=== PATIENT | female | born 1955 | race Caucasian/White ===

== ENCOUNTER 2021-10-22 08:37 | Observation (INO) | payer OTHER ==
[~2021-10-22] VITALS: Ht 167.6 cm; Wt 79.5 kg
--- OUTSIDE RECORDS SUMMARY | 2021-10-22 08:40 | XMS ---
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 EJennifer VISIT COUNT (12 MO.) [address] [facility] [address] [place] [address] TOTAL 3 NOTE: Visits indicate total known visits. ED/UCC VISIT TRACKING (12 MO.) 10/22/2021 08:38 KAYLYNN Duffy TYPE: Emergency COMPLAINT: - ABD PAIN 10/17/2021 09[facility] 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
[2021-10-22] MEDS ORDERED: LISINOPRIL10 MG PO (09:25)
[2021-10-22] MEDS ORDERED: MELOXICAM15 MG PO (09:25)
[2021-10-22] MEDS ORDERED: TRAMADOL HCL50 MG PO (09:25)
[2021-10-22] MEDS ORDERED: DULOXETINE HCL30 MG PO (09:25)
[2021-10-22] MEDS ORDERED: MAGNESIUM100 MG PO (09:26)
[2021-10-22] MEDS ORDERED: ZYRTEC10 MG (09:26)
--- NOTE | 2021-10-22 12:26 | NUR ---
REPORT RECEIVED FROM DANE BULL. AWAITING PTS ARRIVAL TO MED/SURG.
[2021-10-22] MEDS ORDERED: ALLER-FEX180 MG PO (13:17)
--- NOTE | 2021-10-22 13:22 | NUR ---
PT ARRIVED FROM ER. PT TRANSFERS SELF TO BED, NO ASSISTANCE NEEDED. PT STEADY ON FEET. PT REPORTS 7/10 PAIN IN RIGHT UPPER QUADRANT, SEE MAR FOR MEDICAITON GIVEN. PT DENIES NASUEA. LUNG SOUNDS CLEAR. HEART TONES REGULAR. CMS INTACT. BOWEL TONES ACTIVE. ABDOMEN SOFT ALTHOUGH TENDER IN RIGHT UPPER QUADRANT. PT REPORTS ABDOMEN APPEARS MILDLY DISTENDED. PT DENIES DIARRHEA TODAY BUT REPORTS "i DID IT ALL LAST NIGHT. I CLEANED MY COLON OUT." CONFIRMING RECENT DIARRHEA. PT REMAINS NPO AT THIS TIME. IV FLUIDS STARTED. PT TALKING WITH FAMILY ON PHON. NO ADDITIONAL REQUESTS OR COMPLAINTS. CALL LIGHT CrambuIN REACH. BED RAILS UP.
[2021-10-22] MEDS ORDERED: ZYRTEC10 MG PO (14:02)
[2021-10-22] MEDS ORDERED: CALCIUM500 MG PO (14:07)
[2021-10-22] MEDS ORDERED: VITAMIN D350 MCG PO (14:08)
[2021-10-22] MEDS ORDERED: TYLENOL EXTRA500 MG PO (14:08)
--- NOTE | 2021-10-22 14:57 | NUR ---
THIS RN TO ROOM TO CHECK ON PT. PT STATES "CAN YOU MAKE THIS PAIN GO AWAY FOR LONGER." EDUCTION DONE WITH PT REGARDING PAIN MEDICATION. PT RATES PAIN AT 7/10 IN RIGHT SIDED ABDOMEN. PT REPORTS PAIN "SHARP." SEE MAR FOR MEDICATION GIVEN. PT CONTINUES TO DENY NAUSEA. NO ADDITIONAL REQUESTS OR COMPLAINTS. CALL LIGHT WITHIN REACH. BED RAILS UP.
--- NOTE | 2021-10-22 15:29 | NUR ---
PT CALLS TO REPORT IV PUMP ALARMING, RESOLVED. PT STATES SHE CANNOT GET COMFORTABLE IV IN LAC KEEP HER FROM BENDING HER ARM. NEW IV PLACED IN RFA AND IV FLUIDS MOVED TO RFA IV SITE. EDUCATION ABOUT IVs PROVIDED. NO OTHER NEEDS AT THIS TIME. CALL LIGHT IN REACH.
--- NOTE | 2021-10-22 15:58 | NUR ---
THIS RN TO ROOM TO CHECK ON PT. PT RESTING IN BED ON LEFT SIDE. PT RPEORTS PAIN HAS IMPROVED NOW 08/11. PT DENIES NEED FOR ADDITIONAL PAIN MEDICAITON AT THIS TIME. NO ADDITIONAL REQUESTS OR COMPLAINTS. CALL LIGHT WITHIN REACH. BED RAILS UP.
--- NOTE | 2021-10-22 16:26 | NUR ---
AFTERNOON ASSESSMENT DUE. PT RESTING IN BED ON LEFT SIDE WITH EYES CLOSED. PT AWAKENS TO MOVEMENT IN THE ROOM. PT REPORTS "SHARP" ABDOMINAL PAIN ON RIGHT SIDE AT 6/10, SEE MAR FOR MEDICAITON GIVEN. PT DENIES NAUSEA. STAND BY ASSIST UP TO RESTROOM. PT VOIDS 50ML DARK YELLOW URINE. SAMPLE SENT TO LAB. PT REMAINS ALERT AND OREINTED TO ALL. LUNG SOUNDS CLEAR. HEART TONES REGULAR. ABDOMEN REMAINS SOFT BUT TENDER TO RIGHT SIDE. BOWEL TONES ACTIVE. MILD DISTENTION CONTINUES. NO ADDITONAL REQUESTS OR COMPLAINTS AT THIS TIME. PT TELLING STORIES ABOUT HER FAMILY. CALL LIGHT WITHIN REACH. BED RAILS UP.
--- NOTE | 2021-10-22 16:51 | NUR ---
DR. KIRK UPDATED ON PT STATUS. NEW ORDERS PLACED. CLEAR LIQUIDS PROVIDED TO PT. PT DENIES ADDITIONAL REQUESTS OR COMPLAINTS. CALL LIGHT WITHIN REACH.
--- NOTE | 2021-10-22 17:43 | NUR ---
THIS RN TO ROOM WITH DR. KIRK FOR ROUNDS. NEW ORDERS PLACED. PT REPORTS HER QUESTIONS HAVE BEEN ANSWERED AND VERBALIZES UNDERSTANDING OF PLAN OF CARE. PT REPORTS PAIN IS WELL COTNROLLED AT 5/10 AT THIS TIME. CONSENT FOR SURGERY SIGNED. NO ADDITIONAL NEEDS AT THIS TIME. CALL LIGHT WITHIN REACH. BED RAILS UP.
--- NOTE | 2021-10-22 18:16 | NUR ---
NEW ORDERS PLACED. MEDICATIONS GIVEN PER MD ORDER. NEW IV FLUIDS HUNG. EKG PERFORMED BY RT [place]. PT REPORTS PAIN IS WELL CONTROLED AT 5/10. I.S. PROVIDED, PT DEMONSTARTES USE REACHING 1250ML X5. SCDS APPLIED. PT DECLINES SCDS'. PT ENCOUARGED TO AMBULATE. PT UP TO AMBULATE IN BLANCHARD, INDEPENDANT, X2 LAPS. NO ADDITIONAL NEEDS AT THIS TIME. CALL LIGHT WITHIN REACH. BED RAILS UP.
--- NOTE | 2021-10-22 18:41 | NUR ---
PT ARRIVED TODAY FOR CHOLECYSITIS. PT INDEPENDANT IN ROOM, STEADY ON FEET. PT TOLERATING CLEAR LIQUID DIET WITH OUT NAUSEA. PT REPORTS 5-8/10 PAIN THIS SHIFT, PRN PAIN MEDICATION GIVEN. ABDOMEN SOFT BUT TENDER TO TOUCH. BOWEL TONES ACTIVE. EKG DONE PER MD ORDER. SCD'S AND I.S. IN PLACE. PRE OP INSTRUCTION COMPLETED. PT VOIDING QUANITTY SUFFICIENT. PT USES CALL LIGHT AND MAKES NEEDS KNOWN.
--- NOTE | 2021-10-22 23:08 | NUR ---
PT STATES SHE DID NOT GET ANY RELIEF WITH PO NORCO.
--- NOTE | 2021-10-23 00:05 | NUR ---
PT IS NPO FOR SURGERY IN THE AM.
--- NOTE | 2021-10-23 00:44 | NUR ---
PT AWAKENED WITH URGE TO GO TOTHE BATHROOM. PT VOIDED AND WAS ASSISTED BACK TO BED. CALL LIGHT IN REACH.
--- NOTE | 2021-10-23 04:14 | NUR ---
PT STATES THAT THE NORCO DID NOTHING FOR HER PAIN. PAIN IS INCREASING. PT RATED HER PAIN 7/10. SHE WAS GIVEN DILAUDID 0.5 MG SLOW IVP. CALL LIGHT IN REACH.
--- NOTE | 2021-10-23 06:58 | NUR ---
PT AMBULATEED IN THE HALLS ACCOMPANIED BY STAFF. SHE TOLERATED THIS WELL. SHE THEN WENT TO THE BATHROOM AND VOIDED. BACK TO BED.CALL LIGHT IN REACH.
--- NOTE | 2021-10-23 07:27 | NUR ---
PT HAS HAD HER PAIN CONTROLLED WITH IV DILAUDID 0.5 MG X2 DOSES THIS SHIFT. PO NORCO DID NOT RELIEVE HER ABD PAIN. SHE HAS BEEN UP INDEPENDENTLY TO VOID. NPO SINCE MIDNIGHT. AMBULATED IN THE HALLS WITH STAFF. VSS. AFEBRILE.
--- NOTE | 2021-10-23 07:30 | NUR ---
SHIFT REPORT RECEIVED FROM TAWNY VELA. PT RESTING IN BED. NO NEEDS AT THIS TIME. CALL LIGHT IN REACH.
--- NOTE | 2021-10-23 08:28 | CONS ---
[facility] [address] [place], [place] [address] Signed DATE OF CONSULTATION: 10/22/2021 CHIEF COMPLAINT: Right upper quadrant abdominal pain. HISTORY OF PRESENT ILLNESS: Marisol is a 65-year-old female, who has been having right upper quadrant abdominal pain for about the last year. They were treating as rib pain. That was not working. She started to realize it was associated with fatty meals. She went to the [facility] about a week ago. Interestingly, the ultrasound and CT scan were overly concerning. There was some consideration that she might need a HIDA scan with ejection fraction. For some reason, she came to our emergency room in that regard. Unfortunately that is an outpatient test done in our nuclear department. Nevertheless, she clearly has right upper quadrant abdominal pain. We repeated the blood work and her AST and ALT are just slightly elevated. We repeated the ultrasound and she actually has sludge and stones in her gallbladder with the gallbladder wall slightly thick at 3.4 mm and a positive Barrera sign. Common bile duct is unremarkable at 5 mm. I have been asked to admit her as a general surgeon on-call. She has already been hydrated, given Rocephin and Flagyl. We are in the midst of COVID surge and half of our staff is actually absent from the hospital. Consequently, we will be doing her surgery tomorrow morning as an add-on. PAST MEDICAL HISTORY: Hypertension, vertigo, seasonal allergies, left shoulder and neck pain, fatigue, hyperglycemia, diverticulosis, umbilical hernia, right inguinal hernia, right hip pain. PAST SURGICAL HISTORY: She has had 2 C-sections and bilateral tubal ligation. SOCIAL HISTORY: She does not smoke or drink. She is to [place] at [phone]. She has 2 grown children. 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 They have moved from [facility] to [place], [place]. They prefer [facility]. FAMILY HISTORY: Mom had breast cancer. Brother was around secondhand smoke and ended up with a head and neck cancer. REVIEW OF SYSTEMS: She had 10 systems reviewed and there are all included in the above. ALLERGIES: None. Electronically Signed By: MILO KIRK MD 10/23/21 0828 PATIENT NAME: MARISOL LINDQUIST CONSULTATION DATE OF : 57 REPORT #: [id number] PHYSICIAN: MILO KIRK MD PCP: OTHER PCP REPORT IS CONFIDENTIAL AND NOT TO BE RELEASED WITHOUT AUTHORIZATION [facility] [address] [place], [place] [address] Signed MEDICATIONS: Duloxetine 30 mg p.o. daily, lisinopril 10 mg p.o. daily, meloxicam, and magnesium. PHYSICAL EXAMINATION: VITAL SIGNS: Blood pressure 155/71. She did not take the lisinopril today. Heart rate 58, respiratory rate 18, temperature is 97.6 degrees, 100% on room air. She is 5 feet 6 inches and 79 kg. GENERAL: Kelsey is a 65-year-old female, lying supine semi-recumbent in our hospital bed. She is alert, awake, and interactive. She is not systemically ill or toxic. She is not jaundiced. LUNGS: Clear to auscultation bilaterally. HEART: Regular rate and rhythm without murmurs. ABDOMEN: Generally soft and flat with some tenderness in the right upper quadrant. She has received some pain medications. LABORATORY DATA: Her white blood cell count 7.8, hemoglobin 13, neutrophils 62. Electrolytes are unremarkable. Her blood sugar 119. COVID is negative. Total bilirubin 0.9, AST 46, ALT 61, alkaline phosphatase 80, albumin 3.8, her lipase is 64. RADIOGRAPHIC STUDIES: I reviewed the ultrasound report and the CT scan report from [facility]. Her ultrasound today shows sludge and stones in the gallbladder with the gallbladder wall at 3.4 mm and common bile duct at 5 mm with a positive Barrera sign. ASSESSMENT/PLAN: Marisol is a 65-year-old female with acute on chronic cholecystitis, cholelithiasis. She has been admitted and we will start on IV antibiotics. I have reviewed with her the location and function of the gallbladder. We have discussed laparoscopic versus open cholecystectomy. We have reviewed the expected intraop and postop course. There is risk of surgery including, but not limited to bleeding, infection, scarring, change in contour of the skin, damage to bowel, damage to main bile duct, incisional hernias, and other unforeseen comorbidities. She has expressed understanding and would like to proceed with surgery tomorrow. Milo Kirk MD ALB/MODL /[id number] Electronically Signed By: MILO KIRK MD 10/23/21 0828 PATIENT NAME: MARISOL LINDQUIST CONSULTATION DATE OF : 57 REPORT #: [id number] PHYSICIAN: MILO KIRK MD PCP: OTHER PCP REPORT IS CONFIDENTIAL AND NOT TO BE RELEASED WITHOUT AUTHORIZATION [address] [place], [place] [address] Signed cc: Milo Kirk MD [facility] [place] [facility] Copies: MILO KIRK MD ~ Electronically Signed By: MILO KIRK MD 10/23/21 0828 PATIENT NAME: LEXAMARISOL JEAN CONSULTATION DATE OF : 57 REPORT #: [id number] PHYSICIAN: MILO KIRK MD PCP: OTHER PCP REPORT IS CONFIDENTIAL AND NOT TO BE RELEASED WITHOUT AUTHORIZATION
--- NOTE | 2021-10-23 08:32 | NUR ---
[facility] CALLED AND STATES THEY WILL ARRIVE SHORTLY TO TRANSPORT PT TO OR. PT PERFORMS CHG WIPE DOWN. LINENS CHANGED. PT UPDATED ON PLAN FOR SURGERY THIS MORNING. PT VERBALIZES UNDERSTANDING OF PLAN OF CARE AND STATES HER QUESTIONS HAVE BEEN ANSWERED. REPORT GIVEN TO AGAPITO, OR CHARGE. [facility] STATES TO HOLD BLOOD PRESSURE MEDICATION, PANTOPRAZOLE AND DULOXETINE (MEDICATIONS HELD), BUT TO GIVE BOTH IV ABX AND ENOXAPARIN (GIVE, SEE MAR). PT TO OR WITH OR STAFF. NO ADDITIONAL NEEDS AT THIS TIME.
--- NOTE | 2021-10-23 08:53 | NUR ---
PT PRIMARY RN, SUSY, UPDATED ON PT STATUS, HELD MEDICATIONS AND TRANSFER TO OR.
--- NOTE | 2021-10-23 11:59 | NUR ---
10/23/21 Moncho9 Maria Victoria Boland 1151-PATIENT ARRIVED TO PACU ON 6L MASK RR EVEN. PATIENT REACTIVE TO VERBAL STIMULI OPENING EYES. SR. IVF INFUSING. ABDOMEN CDI WITH 3 LAP SITES TO ABDOMEN ICE APPLIED. DENIES PAIN OR NAUSEA. REPORTS "FEEL WEIRD"
--- NOTE | 2021-10-23 12:24 | NUR ---
PT TAKEN TO OR FOR SURGERY. WILL FOLLOW
--- NOTE | 2021-10-23 12:39 | NUR ---
PT ARRIVED FROM PACU. PT AGITATED AND FIXATED ON EVENTS OF THE NIGHT/DAY. PT CALMS WITH THERAPUTIC COMMUNICATION AND EDUCATION. VITAL SIGNS STABLE. PT DENIES NAUSEA. PT REPORTS 8/10 ACHING PAIN IN HER ABDOMEN. SEE MAR FOR MEDICATION GIVEN. PT UP TO RESTROOM WITH STAND BY ASSIST. PT VOIDS ML CLEAR YELLOW URINE. PT PERFORMS SELF JASMYNE CARE. STAND BY ASSIST BACK TO BED. GAUZE REMAINS IN PLACE OVER ABDOMINAL LAPAROSCOPIC SITES X3. DRESSINGS C/D/I. NO DRAINAGE NOTED. ABDOMEN SOFT BUT MODERATLY TENDER. BOWEL TONES HYPOACTIVE. PUDDING PROVIDED. PT TOELRATING SIPS OF ICE WATER. NO ADDITIONAL NEEDS AT THIS TIME. CALL LIGHT WITHIN REACH. BED RAILS UP.
--- NOTE | 2021-10-23 13:00 | NUR ---
REPORT GIVEN TO DANE JAIN. WHO HAS PRIMARY CARE OF PT.
--- NOTE | 2021-10-23 13:44 | NUR ---
BED ALARM SOUNDING. PT ATTEMPTING TO GET UP ON HER OWN. PT UNSTEADY AND REPORTS DIZZINESS. PT EDUCATION DONE REGARDING FALL PRECATUTIONS. PT VERBALIZES UNDERSTANDING. STAND BY ASSIST UP TO RESTROOM. PT VOIDS 500ML OF CLEAR YELLOW URINE. STAND BY ASSIST BACK TO BED, PT IMPULSIVE AND USING FURNATURE TO KEEP HER BALANCE. PT REPORTS 6/10 PAIN IN ABDOMEN AND REQUESTS PAIN MEDICATION, NORCO TITRATED UP TO FULL DOSE. ABDOMEN REMAINS SOFT, TENDER WITH PALPATION. BOWEL TONES HYPOACTIVE. GAUZE DRESSING OVER LAP SITES C/D/I WITH NO DRAINAGE NOTED. VITAL SIGNS STABLE. PT RESTING ON LEFT SIDE. BED ALARM ON. CALL LIGHT WIHTIN REACH. NO ADDITIONAL NEEDS AT THIS TIME. PTS PRIMARY RN UPDATED.
[2021-10-23] MEDS ORDERED: HYDROCODON-ACE1 EAC8 (14:44)
--- NOTE | 2021-10-23 14:49 | NUR ---
VITALS STABLE. PT. AMBULATED 1 LAP AROUND THE UNIT AND TOLERATED WELL. SHE REPORTS TOLERABLE ABDOMINAL SORENESS. DENIES NAUSEA. PT HAS MET CRITERIA FOR DISCHARGE. DISCUSSED DISCHARGE AND PT. AGREES SHE WOULD LIKE TO GO HOME.
[2021-10-23] MEDS ORDERED: ADVIL200 MG PO (15:04)
--- NOTE | 2021-10-23 16:45 | NUR ---
PT READY FOR DISCHRAGE. VITAL SIGNS STABLE. PT REPROTS HER HAS ARRIVED. PT REPORTS 6/10 PAIN IN ABDOMEN AND REQUESTS A PAIN PILL "FOR THE DRIVE HOME." SEE MAR FOR MEDICATION GIVEN. PT TRANSFERES SELF TO WHEELCHAIR. PT WHEELED FROM MED/SURG WITH ALL BELONGINS TO MEET . NO ADDITIONAL REQUESTS OR CONCERNS.
--- NOTE | 2021-10-23 16:54 | NUR ---
ALL DISCHARGE INSTRUCTIONS REVIEWED WITH PT. AND QUESTIONS ANSWERED. IVS REMOVED WITH CATH INTACT AND EDUCATION PROVIDED. PT. LEFT VIA WHEEL CHAIR WITH CHARGE. WITH ALL BELONGINGS.
--- NOTE | 2021-10-23 20:08 | OR ---
[facility] [address] [place], [place] [address] Signed DATE OF OPERATION: 10/23/2021 SURGEON: Milo Kirk MD PREOPERATIVE DIAGNOSIS: Ydvbj-ml-[id number] cholecystitis with cholelithiasis (sludge). POSTOPERATIVE DIAGNOSIS: Ekxbb-cp-[id number] cholecystitis with cholelithiasis (sludge). PROCEDURE: Laparoscopic cholecystectomy without intraoperative cholangiogram. ESTIMATED BLOOD LOSS: None. FINDINGS: Nae indeed had inflammatory changes and edema of the gallbladder with the surrounding omentum and duodenum mildly adherent to the gallbladder. She did have a thickened gallbladder wall with very thick motor oil-like sludge. We did not specifically see any stones. We could not get our cholangiocatheter pass through the valves of Heister. Therefore, we did not complete an intraoperative cholangiogram. INDICATIONS: Nae is a 65-year-old female, who over about the last year has been having right upper quadrant abdominal pain. Initially, there was some consideration for a rib pain. That was not working as far as treatment goes. She began to realize that the pain was worse with fatty meals. She had been to the [facility] about a week ago. The CT scan and the ultrasound were overly concerning. Her lab work was not particularly concerning. There was consideration for a HIDA scan with ejection fraction. She was therefore sent up to our hospital emergency room. We repeated her laboratory work and found that her AST and ALT were slightly elevated. The repeat ultrasound showed sludge and possibly stones in her gallbladder. The wall was a little thick around 3.4 mm. Common bile duct was unremarkable. She did demonstrate a positive sonographic Barrera sign. Consequently, I have been asked to admit her as a general surgeon on-call. She was hydrated overnight and started on Rocephin and Flagyl. I had met with her yesterday and prior to the surgery today. We had reviewed the above findings. I gave her a brochure on the gallbladder. We had reviewed the location of function of the gallbladder. We reviewed laparoscopic versus open cholecystectomy. She understands expected intraop and postop course. There is risk including, but not Electronically Signed By: MILO KIRK MD 10/23/212007 PATIENT NAME: NAE LINDQUIST OPERATIVE REPORT DATE OF : 57 REPORT #: [id number] PHYSICIAN: MILO KIRK MD PCP: OTHER PCP REPORT IS CONFIDENTIAL AND NOT TO BE RELEASED WITHOUT AUTHORIZATION [facility] [address] [place] [address] Signed limited to bleeding, infection, scarring, change in contour of the skin, damage to bowel, damage to the main bile duct, incisional hernias and other unforeseen comorbidities. She had expressed understanding and wished to proceed. PROCEDURE IN DETAIL: Nae was taken in the operating room and placed in the supine position under general endotracheal tube anesthesia. She was on preoperative antibiotics along with subcutaneous Lovenox. SCDs were utilized. She was prepped and draped in usual sterile fashion. All trocars were placed in usual positions under direct visualization of camera without difficulty. The top of the gallbladder was grasped and elevated in the right upper quadrant. We had to very carefully and judiciously use some cautery to start our dissection and bluntly dissect the omentum and duodenum in transverse mesocolon down away from the gallbladder. We dissected out the triangle of Calot and located our cystic duct. The cholangiocatheter was inserted in two separate locations on the cystic duct without success. We ran into her valves of Heister. We did not feel it was lewis to travel down the cystic duct any further as there was more inflammatory changes. We therefore abandoned the intraoperative cholangiogram and placed three clips fully across the cystic duct stump. The cystic duct stump was then divided sharply. We placed several clips on our cystic artery and then we removed the gallbladder from the gallbladder fossa with the help of the cautery and placed that into an EndoCatch bag. The right upper quadrant was irrigated and suctioned out until clear. We used our laparoscopic suturing device to pass 0-Vicryl suture on either side of the fascia of the subxiphoid trocar site. This was tied down to close this fascia primarily. After this, all the gas was allowed to escape and the trocars were removed along with the gallbladder. The gallbladder was opened on the back table by our circulating nurse for photodocumentation. We found very thick motor oil sludge, but no obvious stones. She appears to have some cholesterolosis and thickening to the gallbladder wall. We closed the fascia of the supraumbilical trocar site with interrupted simple and [id number] 0 Vicryl sutures. Local anesthetic was copiously injected into all trocar sites. Each trocar site was irrigated and suctioned out until clear. The skin and dermis of each trocar site were closed with interrupted 3-0 subcuticular Monocryl sutures. Dry gauze and tape were applied to all incisions. Nae was awakened from her anesthesia, extubated in the OR, and taken to recovery room in stable condition. Milo Kirk MD ALB/MODL /[id number] Electronically Signed By: MILO KIRK MD 10/23/212007 PATIENT NAME: NAE LINDQUIST OPERATIVE REPORT DATE OF : 57 REPORT #: [id number] PHYSICIAN: MILO KIRK MD PCP: OTHER PCP REPORT IS CONFIDENTIAL AND NOT TO BE RELEASED WITHOUT AUTHORIZATION [address] [address] Signed cc: [facility] Milo Kirk MD [facility] Copies: MILO KIRK MD ~ Electronically Signed By: MILO KIRK MD 10/23/212007 PATIENT NAME: NAE LINDQUIST OPERATIVE REPORT DATE OF : 57 REPORT #: [id number] PHYSICIAN: MILO KIRK MD PCP: OTHER PCP REPORT IS CONFIDENTIAL AND NOT TO BE RELEASED WITHOUT AUTHORIZATION
--- NOTE | 2021-10-24 07:01 | EKG ---
[facility] [address] [facility] [place], [place] [address] Signed Normal sinus rhythm Low voltage QRS Borderline ECG No previous ECGs available Confirmed by TAWNY ISAAC MD ([id number]) on 10/24/2021 7:01:02 AM Electronically Signed By: TAWNY ISAAC MD 10/24/21 0701 PATIENT NAME: MARISOL LINDQUIST Electrocardiogram DATE OF : 57 PHYSICIAN: TAWNY ISAAC MD REPORT #: [id number] REPORT IS CONFIDENTIAL AND NOT TO BE RELEASED WITHOUT AUTHORIZATION
--- NOTE | 2021-10-27 11:34 | PATH ---
[facility] [address] [place], [place] [address] Signed SPECIMEN(S): A GALLBLADDER SPECIMEN SOURCE: A. GALLBLADDER CLINICAL HISTORY: Cholecystitis, cholelithiasis. FINAL PATHOLOGIC DIAGNOSIS: Gallbladder, cholecystectomy: - Chronic calculous cholecystitis. JVR:[facility]:C2NR MICROSCOPIC EXAMINATION: Histologic sections of all submitted blocks are examined by light microscopy. These findings, together with the gross examination, support the pathologic diagnosis. GROSS DESCRIPTION: The specimen, labeled "CrystalMarisol," and designated on the requisition "gallbladder," is received in formalin and consists of: Specimen: Previously opened gallbladder. Dimensions: 7.8 x 5.2 x 0.9 cm. Serosa: Violaceous and focally congested. Cystic Duct: Inked, probed. Calculi: Not grossly identified. Mucosa: Green and velvety. Wall thickness: 0.5 cm. Lymph node: No pericystic lymph nodes are grossly identified. Additional: None. Digital Specialist sections are submitted in cassette (A1). FB (under the direct supervision of a pathologist) The Gross Description was prepared using a voice recognition system. The report was reviewed for accuracy; however, sound-alike word errors, addition and/or deletions may occur. If there is any question about this report, please contact Client Services. PERFORMING LABORATORY: The technical component was performed by [employer], [address] [place] [id number] (CLIA# [id number]). The professional interpretation was performed by [employer] Yajaira Apodaca PATIENT NAME: MARISOL LINDQUIST PATHOLOGY DATE OF : 57 REPORT #: [id number] PHYSICIAN: JENN PATHOLOGY PCP: OTHER PCP REPORT IS CONFIDENTIAL AND NOT TO BE RELEASED WITHOUT AUTHORIZATION [facility] [address] [place], [place] [address] [phone] (CLIA#: [id number]). Diagnostician: Navdeep Elmore MD Pathologist Electronically Signed 10/27/2021 Copies: ~ PATIENT NAME: MARISOL LINDQUIST PATHOLOGY DATE OF : 57 REPORT #: [id number] PHYSICIAN: JENN PATHOLOGY PCP: OTHER PCP REPORT IS CONFIDENTIAL AND NOT TO BE RELEASED WITHOUT AUTHORIZATION
== END 2021-10-23 16:43 | disposition home or self-care (01) ==
LOC: ED 08:37 → MS 08:39
PROVIDERS: ADMIT Colon & Rectal Surgery; ATTEND Colon & Rectal Surgery
PROC: 0FT44ZZ Resection of Gallbladder, Percutaneous Endoscopic Approach (ICD-10-PCS; principal; 2021-10-23 08:15)
DX: K80.12 Calculus of gallbladder with acute and chronic cholecystitis without obstruction (principal); I10 Essential (primary) hypertension; Z20.822 Contact with and (suspected) exposure to COVID-19
CPT/HCPCS: 36415; 76705; 80053; 81001; 83690; 83735; 84100; 85025; 87502; 93005; 93010; 96365; 96372; 96375; 96376; 99285-25; A9270; C9803; G0378; J0131; J0330; J0696; J1100; J1170; J1650; J1885; J2001; J2250; J2405; J2704; J3010; J3480; J7030; J7121; U0003

== ENCOUNTER 2023-08-31 06:55 | Day surgery (SDC) | payer OTHER ==
[2023-08-25 15:18] VITALS: BP 121/72
[~2023-08-31] VITALS: Ht 167.6 cm; Wt 84.1 kg
[~2023-08-31 06:55] MED LIST: ADVIL200 MG PO; ALENDRONATE SOD70 MG PO; ALLER-FEX180 MG PO; ALLERCLEAR10 MG PO; AMITRIPTYLINE H10 MG PO; CALCIUM500 MG PO; DULOXETINE HCL30 MG PO; HAIR, SKIN &66.7 MCG PO; HYDROCODON-ACE1 EAC8; LACTATED RINGER'S 1,000 ML IV SCH; LISINOPRIL10 MG PO; MAGNESIUM100 MG PO; MELOXICAM15 MG PO; OMEPRAZOLE20 MG PO; TRAMADOL HCL50 MG PO; TYLENOL EXTRA500 MG PO; VITAMIN D350 MCG PO; ZYRTEC10 MG; ZYRTEC10 MG PO
[2023-08-31] MEDS ORDERED: LIDOCAINE HCL 1% 5 ML SDV INJ ONE (07:00)
[2023-08-31] MEDS ORDERED: FAMOTIDINE 20 MG/ 2 ML VIAL IV SCH (07:00)
[2023-08-31] MEDS ORDERED: IBLOOD GLUCOSE TEST STRIP 1 EA TEST VI PRN ×2 (07:00→11:00)
[2023-08-31] MEDS ORDERED: ADULT MULTI G200 MCG PO (07:10)
[2023-08-31 07:14] VITALS: BP 139/79
--- NOTE | 2023-08-31 07:26 | NUR ---
EKG DONE AT THIS TIME HTN.
--- NOTE | 2023-08-31 07:50 | NUR ---
denies any needs. iv patnt.
--- NOTE | 2023-08-31 08:53 | NUR ---
assisted to br. update given. iv patent.
[2023-08-31] MEDS ORDERED: propofoL 200 MG/20 ML VIAL ONE ×3 (09:29→10:38)
[2023-08-31] MEDS ORDERED: LIDOCAINE HCL 2% 5 ML SDV ONE (09:29)
[2023-08-31] MEDS ORDERED: DEXAMETHASONE SOD PHOS 4 MG/ML VIAL ONE (10:16)
[2023-08-31] MEDS ORDERED: KETOROLAC TROMETHAMINE 30 MG/ML VIAL ONE (10:16)
[2023-08-31] MEDS ORDERED: ondansetron HCL 4 MG/2 ML VIAL ONE (10:16)
[2023-08-31] MEDS ORDERED: fentaNYL citrate 100 MCG/2 ML VIAL ONE (10:18)
[2023-08-31] MEDS ORDERED: FAMOTIDINE 20 MG TAB PO PRN (10:45)
[2023-08-31] MEDS ORDERED: METOCLOPRAMIDE HCL 10 MG/2 ML SDV IV PRN (10:45)
[2023-08-31] MEDS ORDERED: HYDROCODONE/ACETA 5/325 TAB PO PRN (10:45)
[2023-08-31] MEDS ORDERED: MORPHINE SULFATE 10 MG/ML VIAL IV PRN (10:45)
[2023-08-31] MEDS ORDERED: NALOXONE HCL 0.4 MG SYR IV PRN ×2 (10:45→11:00)
[2023-08-31] MEDS ORDERED: ondansetron HCL 4 MG/2 ML VIAL IV PRN ×2 (10:45→11:00)
[2023-08-31] MEDS ORDERED: ondansetron HCL 4 MG TAB PO PRN (10:45)
[2023-08-31] MEDS ORDERED: MAGNESIUM HYDROXIDE/AL HYDROX 30 ML CUP PO PRN (10:45)
[2023-08-31] MEDS ORDERED: PROCHLORPERAZINE EDISYLATE 10 MG/2 ML VIAL IV PRN (10:45)
[2023-08-31] MEDS ORDERED: LACTATED RINGER'S 1,000 ML IV SCH (10:45)
[2023-08-31] MEDS ORDERED: fentaNYL citrate 50 MCG/ML SDV IV PRN (11:00)
[2023-08-31 11:24] VITALS: BP 133/79
--- NOTE | 2023-08-31 11:45 | NUR ---
08/31/23 1145 Massiel Dye 1045 PT ARRIVED IN PACU SLEEPY. 1055 AWAKE AND TALKING TO STAFF. AT BEDSIDE. C/O ABD PAIN 08/11. 1100 SIPPING ON WATER AND EATING JELLO. 1108 TWO NORCO G[address]EN [address] DC INSTRUCTIONS GIVEN. ALL QUESTIONS ANSWERED. 1130 DRESSED AND WAITING IN DS FOR RIDE HOME.
[2023-08-31] MEDS ORDERED: IBUPROFEN 800 MG TAB PO SCH (14:00)
--- NOTE | 2023-09-01 23:43 | EKG ---
[facility] [address] [facility] [place] [address] Signed Normal sinus rhythm Normal ECG When compared with ECG of 22-OCT-2021 18:12, No significant change was found Confirmed by Trice Otero MD () on 09/01/2023 11:43:14 PM Electronically Signed By: TRICE OTERO MD 09/01/23 2343 PATIENT NAME: MARISOL LINDQUIST Electrocardiogram DATE OF : 57 PHYSICIAN: TRICE OTERO MD REPORT #: [id number] REPORT IS CONFIDENTIAL AND NOT TO BE RELEASED WITHOUT AUTHORIZATION
--- NOTE | 2023-09-02 18:58 | PATH ---
[facility] [address] [place], [place] [address] Signed SPECIMEN(S): A ENDOMETRIAL CURETTINGS AND POLYPS SPECIMEN SOURCE: A. ENDOMETRIAL CURETTINGS AND POLYPS CLINICAL HISTORY: Endometrial thickening on ultrasound FINAL PATHOLOGIC DIAGNOSIS: Endometrium with polyps, curettage: - Multiple portions of endometrial polyp. - Scant portions of atrophic endometrium. - Negative for hyperplasia, atypia, and malignancy. SDL MICROSCOPIC EXAMINATION: Histologic sections of all submitted blocks are examined by light microscopy. These findings, together with the gross examination, support the pathologic diagnosis. GROSS DESCRIPTION: The specimen, labeled and designated "Crystal, endometrial curettings and polyps," is received in formalin and consists of irregular shaped pink-castillo membranous and soft tissue fragments that aggregate measure 4.5 x 2.5 x 0.7. The biggest tissue fragment is bisected. Entirely submitted in (A1-A3). JS (under the direct supervision of a pathologist) The Gross Description was prepared using a voice recognition system. The report was reviewed for accuracy; however, sound-alike word errors, addition and/or deletions may occur. If there are any questions about this report, please contact Client Services. ADDITIONAL NOTES: Immunohistochemical and/or in situ hybridization studies if performed in this case included appropriate positive controls that reacted as expected. This test was developed and its performance characteristics determined by [facility]. It has not been cleared or approved by the U.S. Food and Drug Administration. The FDA has determined that such clearance or approval is not necessary. This test is used for clinical purposes. It should not be regarded as investigational or for research. [facility] is certified under the PATIENT NAME: MARISOL LINDQUIST PATHOLOGY DATE OF : 57 REPORT #: [id number] PHYSICIAN: JENN CHUN PCP: NOEMY PATTERSON MD REPORT IS CONFIDENTIAL AND NOT TO BE RELEASED WITHOUT AUTHORIZATION [facility] [address] [place] [id number] Signed Clinical Laboratory Improvement Amendments of 1988 (CLIA) as qualified to perform high complexity clinical laboratory testing. PERFORMING LABORATORY: Technical component was performed by [facility], [address] [place] [address] (CLIA# [id number]). Professional interpretation was performed by [email or web address], [address] [place] [id number] (CLIA#: [id number]). Diagnostician: Britany Georges MD Pathologist Electronically Signed 09/02/2023 Copies: ~ PATIENT NAME: MARISOL LINDQUIST PATHOLOGY DATE OF : 57 REPORT #: [id number] PHYSICIAN: JENN CHUN PCP: NOEMY PATTERSON MD REPORT IS CONFIDENTIAL AND NOT TO BE RELEASED WITHOUT AUTHORIZATION
--- NOTE | 2023-09-06 07:33 | OR ---
[facility] [address] [place], [place] [address] Signed DATE OF OPERATION: 08/31/2023 SURGEON: Jana Nguyen MD PREOPERATIVE DIAGNOSES: 1. Thickened endometrium. 2. Endometrial mass. POSTOPERATIVE DIAGNOSES: 1. Thickened endometrium. 2. Endometrial mass. 3. Multiple polyps. PROCEDURE: Hysteroscopy, resection of polyps. ANESTHESIA: MAC. ESTIMATED BLOOD LOSS: Minimal. DRAINS: None. INDICATIONS AND FINDINGS: The patient is a 67-year-old female, who was having some right lower quadrant pain. During the course of her evaluation, she underwent an ultrasound which showed a thickened endometrium with a probable mass. At the time of surgery, exam under anesthesia was normal with a normal-size uterus. The cervix was closed. On hysteroscopy, there were multiple polyps within the uterus. DESCRIPTION OF PROCEDURE: The patient was prepped and draped in the dorsal lithotomy position. A weighted speculum was placed. The anterior lip of the cervix was visualized and grasped with a single-tooth tenaculum. The cavity was sounded to 8.5 cm. The endocervical canal was then easily dilated to a #8 dilator. The hysteroscope was then placed and multiple polyps seen. The hysteroscope was removed and stone forceps were introduced and a very large polyp was remove--approximately 2.5 cm. The hysteroscope was re-inserted and the MyoSure Lite was introduced and the remaining polyps were all removed. Following this, Electronically Signed By: JANA NGUYEN MD 09/06/23 0733 PATIENT NAME: MARISOL LINDQUIST OPERATIVE REPORT DATE OF : 57 REPORT #: [id number] PHYSICIAN: JANA NGUYEN MD PCP: NOEMY PATTERSON MD REPORT IS CONFIDENTIAL AND NOT TO BE RELEASED WITHOUT AUTHORIZATION [address] [address] Signed the cavity appeared smooth and regular without any remaining polyps. The instruments were removed and the tenaculum removed. There was no evidence of any ongoing bleeding from the cervix or the tenaculum site. The patient was taken to the recovery room in good condition. All sponge and needle counts were correct. Jana Nguyen MD PJW/MODL /[id number] Copies: ~ Electronically Signed By: JANA NGUYEN MD 09/06/23 0733 PATIENT NAME: MARISOL LINDQUIST OPERATIVE REPORT DATE OF : 57 REPORT #: [id number] PHYSICIAN: JANA NGUYEN MD PCP: NOEMY PATTERSON MD REPORT IS CONFIDENTIAL AND NOT TO BE RELEASED WITHOUT AUTHORIZATION
== END 2023-08-31 11:30 | disposition home or self-care (01) ==
LOC: OPS 06:55 → DS 06:55 → OPS 09:30 → DS 09:30 → OPS 11:30
PROVIDERS: ATTEND Obstetrics & Gynecology
PROC: 0UB98ZZ Excision of Uterus, Via Natural or Artificial Opening Endoscopic (ICD-10-PCS; principal; 2023-08-31 09:30)
DX: N84.0 Polyp of corpus uteri (principal); M81.0 Age-related osteoporosis without current pathological fracture; Z79.899 Other long term (current) drug therapy
CPT/HCPCS: 00952; 88305; 93005; 93010; J1100; J1885; J2001; J2405; J2704; J3010; J7121

== ENCOUNTER 2024-10-22 15:02 | Emergency (ER) | payer OTHER ==
[~2024-10-22] VITALS: Ht 167.6 cm; Wt 81.5 kg
[~2024-10-22 15:02] MED LIST changes: +ADULT MULTI G200 MCG PO; -LACTATED RINGER'S 1,000 ML IV SCH
--- OUTSIDE RECORDS SUMMARY | 2024-10-22 15:09 | XMS ---
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 [place] VISIT COUNT (12 MO.) 1 KAYLYNN Yee [place] TOTAL 2 NOTE: Visits indicate total known visits. ED/UCC VISIT TRACKING (12 MO.) 10/22/2024 15:02 KAYLYNN Walker [place] TYPE: Emergency COMPLAINT: - ABD PAIN, [facility]A [facility] [place] [facility]: [facility] COMPLAINT: - Chest pain, unspecified - Epigastric pain DIAGNOSES: 1. Gastritis, unspecified, without bleeding 2. Essential (primary) hypertension 3. Personal history of nicotine dependence 4. Other detention (current) drug therapy INPATIENT VISIT TRACKING (12 MO.) No inpatient visits to display in this time frame [email or web address]
[2024-10-22 15:26] LABS: BASOPHILS 0.7 % (0.1-1.2); EOSINOPHILS 4.0 % (0.7-5.8); LYMPHOCYTES 27.7 % (19.3-51.7); MCH 30.0 PG (25.6-32.2); MCHC 33.3 g/dL (32.2-35.5); MCV 89.9 fL (79.4-94.8); MONOCYTES 9.1 % (4.7-12.5); NEUTROPHILS 58.2 % (34.0-71.1); RBC 4.34 M/uL (3.93-5.22)
[2024-10-22] MEDS ORDERED: ATORVASTATIN CA20 MG PO (15:30)
[2024-10-22] MEDS ORDERED: IBANDRONATE SO150 MG PO (15:31)
[2024-10-22 15:39] LABS: ALT (SGPT) 19.0 U/L (14-59); AST (SGOT) 18.0 U/L (15-37); GLOMERULAR FILTRATION RATE,EST 50.0 mL/min (>60); PROTEIN, TOTAL 7.8 g/dL (6.4-8.2); UREA NITROGEN 22.0 mg/dL (7-18)
[2024-10-22] MEDS ORDERED: SODIUM CHLORIDE 0.9% 1,000 ML IV PRN (16:30)
[2024-10-22] MEDS ORDERED: PANTOPRAZOLE SODIUM 40 MG/10 ML VIAL IV ONE (16:30)
[2024-10-22] MEDS ORDERED: LIDOCAINE & ANTACID 35 ML BTL PO ONE (16:30)
[2024-10-22 16:48] LABS: BLOOD/HGB, URINE NEGATIVE (Negative); KETONE, URINE NEGATIVE (Negative); LEUK ESTERASE, URINE MODERATE (negative); NITRITE, URINE NEGATIVE (negative)
[2024-10-22 16:55] LABS: BACTERIA, URINE NONE SEEN /hpf (negative); CASTS, URINE NONE SEEN \\lpf; CRYSTALS, URINE NONE SEEN (0-1+); EPITHELIAL CELLS, URINE SQUAMOUS 2+ /lpf (0-1+); REFLEX CULTURE, URINE No (No)
[2024-10-22 18:33] VITALS: BP 145/89
== END 2024-10-22 18:33 | disposition home or self-care (01) ==
LOC: ED 15:02
PROVIDERS: Emergency Medicine
DX: K29.70 Gastritis, unspecified, without bleeding (principal); I10 Essential (primary) hypertension; Z79.899 Other long term (current) drug therapy
CPT/HCPCS: 36415; 74177; 80053; 81001; 83690; 83735; 85025; 96374; 96375; 99284-25; J2405; J2470; J7030; Q9967